=== PATIENT | male | born 2000 | race African-American/Black ===

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

== ENCOUNTER 2021-05-01 19:34 | Emergency (ER) | payer MEDICAID, OTHER ==
[~2021-05-01] VITALS: Ht 175.3 cm; Wt 59.0 kg
[2021-05-01] MEDS ORDERED: IBUPROFEN 600MG TABLET PO ONE (20:45)
[2021-05-01 20:56] VITALS: BP 133/81
[2021-05-01] MEDS ORDERED: IBUP-2029 MT (21:01)
== END 2021-05-01 21:16 | disposition home or self-care (01) ==
LOC: ER 19:34
DX: S63.613A Unspecified sprain of left middle finger, initial encounter (principal); M41.9 Scoliosis, unspecified; Z91.041 Radiographic dye allergy status; Z91.013 Allergy to seafood; Z98.890 Other specified postprocedural states; W21.05XA Struck by basketball, initial encounter; Y93.67 Activity, basketball; Y92.89 Other specified places as the place of occurrence of the external cause; Y99.8 Other external cause status
CPT/HCPCS: 29130; 73140; 99283

== ENCOUNTER 2022-12-16 21:45 | Emergency (ER) | payer MEDICARE ==
[~2022-12-16] VITALS: Ht 175.3 cm; Wt 55.0 kg
[~2022-12-16 21:45] MED LIST: IBUP-2029 MT
[2022-12-16 21:58] VITALS: BP 141/82
[2022-12-16] MEDS ORDERED: IBUP-2029 MT (22:38)
[2022-12-16] MEDS ORDERED: IBUPROFEN 600MG TABLET PO ONE (22:45)
== END 2022-12-16 23:30 | disposition home or self-care (01) ==
LOC: ER 21:45
DX: S80.02XA Contusion of left knee, initial encounter (principal); X58.XXXA Exposure to other specified factors, initial encounter; Y93.89 Activity, other specified; Y92.89 Other specified places as the place of occurrence of the external cause; Y99.8 Other external cause status; Z88.5 Allergy status to narcotic agent
CPT/HCPCS: 73562; 99283

== ENCOUNTER 2023-08-20 08:40 | Emergency (ER) | payer MEDICAID, MEDICARE ==
[~2023-08-20] VITALS: Ht 175.3 cm; Wt 59.0 kg
[2023-08-20 08:42] VITALS: TEMP 98.9; O2SAT 100
[2023-08-20] MEDS ORDERED: IBUPROFEN 600MG TABLET PO ONE (10:30)
[2023-08-20 12:05] VITALS: BP 147/60; PULSE 65; RESP 16
[2023-08-20] MEDS ORDERED: IBUPROFEN 600MG TABLET PO NR (12:05)
[2023-08-20] MEDS ORDERED: METHYLPREDNISOLONE SOD SUCC 125MG/2ML (ACT-O-VIAL) IV SCH (13:00)
[2023-08-20] MEDS ORDERED: DIPHENHYDRAMINE 50MG/ML VIAL IV ONE (13:00)
[2023-08-20] MEDS ORDERED: HYDR-4001 MT ×2 (13:02)
[2023-08-20 14:37] LABS: CHLORIDE 102 mEq/L (98-107); INDEX HEMOLYSI 1 (1-3); INDEX ICTERIC 1 (1-4); INDEX LIPEMIC 1 (1-3); POTASSIUM 4.1 mEq/L (3.5-5.1); SODIUM 138 mEq/L (136-145)
[2023-08-20 14:42] LABS: CALCIUM 9.5 mg/dL (8.5-10.1); CARBON DIOXIDE 31 mEq/L (21-32); CREATININE 0.8 mg/dL (0.6-1.3); GLUCOSE 108 mg/dL (70-105); UREA NITROGEN BLOOD 12 mg/dL (7-21)
[2023-08-20] MEDS ORDERED: IOHEXOL-350 100 ML BOTTLE ONE (20:01)
[2023-08-20] MEDS ORDERED: IBUP-2029 MT (20:53)
== END 2023-08-20 21:16 | disposition home or self-care (01) ==
LOC: ER 08:40
DX: M25.562 Pain in left knee (principal); Z98.890 Other specified postprocedural states
CPT/HCPCS: 80048; 36415; 73562; 72191; 73706; 96374; 96375; 99285; Q9967; J1200; J2930; Z7610 ×4; L1830